=== PATIENT | male | born 1995 | race Two or more races ===

== ENCOUNTER → 2021-08-08 | Emergency (ER) | payer MEDICAID, OTHER ==
[~2021-08-08] MED LIST: diphenhdrAMINE HCL 50 MG/1 ML VL IM ONE; methylPREDNISolone SOD SUCC 125 MG/2 ML VL IM ONE
== END | disposition left against medical advice (07) ==
LOC: ER 23:18
DX: T78.40XA Allergy, unspecified, initial encounter (principal); X58.XXXA Exposure to other specified factors, initial encounter; Z53.21 Procedure and treatment not carried out due to patient leaving prior to being seen by health care provider